=== PATIENT | female | born 1990 | race Caucasian/White ===

== ENCOUNTER 2016-06-17 06:52 | Emergency (ER) ==
[2016-06-17 06:57] VITALS: BP 116/62
[2016-06-17] MEDS ORDERED: PEN VK PO ONE (07:18)
[2016-06-17] MEDS ORDERED: NORCO-7.5 PO ONE (07:18)
[2016-06-17] MEDS ORDERED: MOTRIN PO ONE (07:18)
--- NOTE | 2016-06-17 07:31 | PROVIDER DOCUMENTATION ---
HPI-EENT General - General Chief Complaint: Toothache Stated Complaint: TOOTHACHE Time Seen by Provider: 06/17/16 07:12 Source: patient Allergies/Adverse Reactions: Patient Allergies Allergy/AdvReac Type Severity Reaction Status Date / Time No Known Allergies Allergy Verified 06/17/16 06:59 Home Medications: Lamotrigine [Lamictal] 300 mg PO BID 09/28/13 Levetiracetam [Keppra] 2,000 mg PO BID 09/28/13 Zonisamide [Zonegran] 300 mg HS 04/11/15 - History of Present Illness-EENT General Nature of Presenting Problem: pt had had left side tooth aches on/off for over a month. She saw her DDS a month ago and was told everything was fine. Then last night the pain got worse and developed left cheel swelling. She took motrin last night with only slight relief Review of Systems - Adult - REVIEW OF SYSTEMS - ADULT Constitutional: denies: chills, fever Eyes: denies: discharge Ears, Nose, Mouth & Throat: denies: ear pain, sinus problem, throat pain Respiratory: denies: cough Gastrointestinal: denies: abdominal pain, nausea, vomiting Integumentary: denies: rash Neurological: denies: headache/migraines, numbness, paresthesia All Other Systems: Reviewed and Negative Past History - Adult - PAST MEDICAL HISTORY-ADULT Review of Records: reports: Old Records Reviewed, Nursing Assessment Review, Medications Reviewed, Social history reviewed & non-contributory. 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) - PRIOR SURGERIES/PROCEDURES Surgical/Procedure History: reports: reviewed, not pertinent - IMMUNIZATION STATUS Childhood Immunizations: See Nurse Assessment Flu Vaccine: See Nurse Assessment Physical Exam- EENT - Physical Exam EENT Initial Vital Signs Reviewed: Yes General Appearance: appears well, alert, no apparent distress Throat Exam: other (tender to percussion over left rear most upper and lower molars) Respiratory: lungs clear, normal breath sounds, no pleuratic chest pain, no respiratory distress, no accessory muscle use Integumentary: normal color, normal turgor, warm/dry Neurologic: grossly normal, no motor/sensory deficits Psych/Mental Status: normal mood/affect, normal thought content, normal thought process, oriented x 3 Progress - PLAN OF CARE/RESULTS Progress/Plan/Lab Results: Orders Category Date Time Status Hydrocodone/APAP 7.5 mg/325 mg [[place]-7.5] Med 06/17/16 07:18 Discontinued 1 each PO NOW ONE Ibuprofen [Motrin] Med 06/17/16 07:18 Discontinued 800 mg PO NOW ONE Penicillin V Potassium [Pen Vk] Med 06/17/16 07:18 Discontinued 500 mg PO NOW ONE Vital Signs Temp Pulse Resp BP Pulse Ox 06/17/16 06:55 98.2 F 86 16 116/62 100 No Known Allergies Allergy (Verified 06/17/16 06:59) Lamotrigine [Lamictal] 300 mg PO BID 09/28/13 Levetiracetam [Keppra] 2,000 mg PO BID 09/28/13 Zonisamide [Zonegran] 300 mg HS 04/11/15 Departure - Departure Time of Disposition Order: 07:33 DIAGNOSIS: Dental abscess Disposition: HOME 01 Certified Medical Emergency: Emergent Condition: Good Additional Instructions: call your dentist to arrange follow up ED Follow Up Instructions: You have been treated by a care provider in the Emergency Department. These instructions are being provided to you so you can have an understanding of how to care for yourself upon discharge. Upon discharge from the Emergency Department, you are responsible for making arrangements for follow-up care by a physician of your choice. Take all prescribed medications as directed. Return to the Emergency Department immediately for any new or worsening symptoms. You may call the Physician Referral phone number at [phone] to obtain a list of Physicians who are taking new patients. Prescriptions: Hydrocodone/Acetaminophen [[place] 5-325 Tablet] 1 each PO Q4-6H PRN PRN #20 tablet PRN Reason: Pain Penicillin V Potassium [Pen Vk] 500 mg PO Q6HR #80 tablet
== END 2016-06-17 08:49 | disposition home or self-care (01) ==
LOC: ED 06:52
DX: K04.7 Periapical abscess without sinus (principal); K08.89 Other specified disorders of teeth and supporting structures; R56.9 Unspecified convulsions; Z79.899 Other long term (current) drug therapy
CPT/HCPCS: 99282